=== PATIENT | female | born 1960 | race Caucasian/White ===

== ENCOUNTER 2018-12-08 12:06 | Outpatient (RCR) | payer MEDICARE, MEDICAID, SELFPAY | END 2018-12-08 12:20 | disposition home or self-care (01) | LOC: PT 12:06 | PROVIDERS: Visit Provider Orthopaedic Surgery | DX: S82.101A Unspecified fracture of upper end of right tibia, initial encounter for closed fracture (principal) ==

== ENCOUNTER → 2019-01-03 14:29 | Outpatient (CLI) | payer MEDICARE, MEDICAID, SELFPAY ==
--- NOTE | 2019-01-03 14:34 | XR_ITS ---
XR knee RT 3V HISTORY: Follow-up fracture ITS.REASON: follow up right tibial plateau fx ORDERING PHYSICIAN: Jerardo Paulson MD PATIENT AGE: 58 years COMPARISON: 12/06/2018 FINDINGS: No change in the minimally depressed lateral tibial plateau fracture. The lateral aspect of the tibial plateau is depressed by approximately 3 mm. There is good alignment with no other significant anomalies. IMPRESSION: No change minimally depressed lateral tibial plateau fracture
== END ==
LOC: RAD 14:30
PROVIDERS: PCP Family Medicine; Visit Provider Orthopaedic Surgery
DX: S82.141A Displaced bicondylar fracture of right tibia, initial encounter for closed fracture (principal)
CPT/HCPCS: 73562

== ENCOUNTER → 2019-02-19 14:16 | Outpatient (CLI) | payer MEDICARE, MEDICAID, SELFPAY ==
--- NOTE | 2019-02-19 14:22 | XR_ITS ---
PROCEDURE: XR KNEE RT 3V CLINICAL INDICATION: closed right tibial plateau fracture follow up Follow-up tibial plateau fracture, pain COMPARISON: Knee R from 12/06/2018 FINDINGS: Mildly depressed lateral tibial plateau fracture is once again noted. The fracture line is somewhat less apparent Other findings:None. IMPRESSION: Healing lateral tibial plateau fracture Dictated by: Esvin Russell MD 02/19/2019 14:41 Electronically signed by Esvin Russell MD in [place] 02/19/2019 14:41
== END ==
LOC: RAD 14:20
PROVIDERS: PCP Family Medicine; Visit Provider Orthopaedic Surgery
DX: S82.141A Displaced bicondylar fracture of right tibia, initial encounter for closed fracture (principal)
CPT/HCPCS: 73562